=== PATIENT | male | born 1935 | race Caucasian/White ===

== ENCOUNTER 2024-01-20 13:27 | Inpatient (IN) | payer MEDICARE, BC ==
[~2024-01-20] VITALS: Ht 172.7 cm; Wt 70.5 kg
--- NOTE | 2024-01-20 13:36 | ED.PDOC ---
Back pain HPI HPI Comments 88 year old male OMAR presents to the ED with chief complaint of back pain. Patient reports that he has been dealing with chronic back pain for some time now, however, the past 3 days have had the most severe pain. Patient relays that the pain is to the left side of his lower back and is worse with movement, calling 911 due to not being able to take the pain anymore. Patient states his pain is so bad it feels like he is going to fall if he walks on his own. Patient denies any dizziness, headache, saddle numbness, weakness, chest pain, SOB, or fall. Time Seen by MD: 13:33 Reviewed Notes: Nurses Notes, Stacker Driver Notes, Medications, Allergies Allergies: Coded Allergies: NO KNOWN ALLERGIES (Unverified , 01/20/24) Information Source: Patient, Emergency Med Personnel Mode of Arrival: EMS Timing: Days Duration: Since onset Location of Back pain: (L) Lower back Severity: Moderate Prehospital treatment: None Quality: Aching Onset: Spontaneous, Bending, Twisting History of: Chronic Back Pain Modifying Factors: Walking Past Medical History PAST MEDICAL HISTORY: Denies Surgical History: Pacemaker Surgical History (Other): Back surgery Family History Family History: Reviewed,noncontributory to illness Social History Smoker: Non-Smoker Alcohol: Denies ETOH Use Drugs: Denies Drug Use Lives In: Home Constitutional: denies: chills, diaphoresis, fatigue, fever, malaise, sweats, weakness, others EENTM: denies: blurred vision, double vision, ear bleeding, ear discharge, ear drainage, ear pain, ear ringing, eye pain, eye redness, hearing loss, mouth pain, mouth swelling, nasal discharge, nose bleeding, nose congestion, nose pain, photophobia, tearing, throat pain, throat swelling, voice changes, others Respiratory: denies: cough, hemoptysis, orthopnea, SOB at rest, shortness of breath, SOB with excertion, stridor, wheezing, others Cardiovascular: denies: chest pain, dizzy spells, diaphoresis, Dyspnea on exertion, edema, irregular heart beat, left arm pain, lightheadedness, palpitations, PND, syncope, others Gastrointestinal: denies: abdomen distended, abdominal pain, blood streaked bowels, constipated, diarrhea, dysphagia, difficulty swallowing, hematemesis, melena, nausea, poor appetite, poor fluid intake, rectal bleeding, rectal pain, vomiting, others Genitourinary: denies: burning, dysuria, flank pain, frequency, hematuria, incontinence, penile discharge, penile sore, pain, testicle pain, testicle swelling, urgency, others Neurological: denies: dizziness, fainting, headache, left sided numbness, left sided weakness, numbness, paresthesia, pre-existing deficit, right sided numbness, right sided weakness, seizure, speech problems, tingling, tremors, weakness, others Musculoskeletal: reports: back pain; denies: gout, joint pain, joint swelling, muscle pain, muscle stiffness, neck pain, others Integumetry: denies: bruises, change in color, change in hair/nails, dryness, laceration, lesions, lumps, rash, wounds, others Allergic/Immunocompromised: denies: Difficulty Healing, Frequent Infections, Hives, Itching, others Hematologic/Lymphatic: denies: anemia, blood clots, easy bleeding, easy bruising, swollen glands, others Endocrine: denies: excessive hunger, excessive sweating, excessive thirst, excessive urination, flushing, intolerance to cold, intolerance to heat, unexplained weight gain, unexplained weight loss, others Psychiatric: denies: anxiety, bipolar disorder, depression, hopeless, panic disorder, schizophrenia, sleepless, suicidal, others All Other Systems: Reviewed and Negative Physical Exam General Appearance: Moderate Distress, Normal HEENT: Normal ENT Inspection, PERRL/EOMI Neck: Full Range of Motion, Non-Tender, Normal, Normal Inspection Respiratory: Chest Non-Tender, Lungs Clear, No Accessory Muscle Use, No Respiratory Distress, Normal Breath Sounds Cardiovascular: No Edema, No JVD, No Murmur, No Gallop, Normal Peripheral Pulses, Regular Rate/Rhythm Breast Exam: Deferred Gastrointestinal: No Organomegaly, Non Tender, No Pulsatile Mass, Normal Bowel Sounds, Soft Genitalia: Deferred Pelvic: Deferred Rectal: Deferred Extremities: No calf tenderness, Normal capillary refill, Normal inspection, Normal range of motion, Non-tender, No pedal edema Musculoskeletal : Apperance: Normal Neurologic: Alert, No Motor Deficits, No Sensory Deficits Cerebellar Function: NOT DONE Reflexes: NOT DONE Skin: Dry, Normal Color, Warm Peripheral Pulses: 3+ Radial (R), 3+ Radial (L) Lymphatic: No Adenopathy Was a procedure done? Was a procedure done?: No Back Pain Differential Dx Differential Diagnosis: Musculoskeletal Pain, Urinary Tract Infection, Urolithiasis X-Ray, Labs, Meds, VS Vital Signs Date Time Temp Pulse Resp B/P (MAP) Pulse Ox O2 Delivery O2 Flow Rate FiO2 01/20/24 13:48 98.2 70 16 145/103 (117) 98 Lab Test 01/20/24 14:09 01/20/24 13:54 Range/Units White Blood Count 8.7 4.4-10.8 10^3/uL Red Blood Count 4.76 4.5-5.90 10^6/uL Hemoglobin 14.1 13.5-17.5 g/dL Hematocrit 41.0 41.0-53.0 % Mean Corpuscular Volume 86.2 80.0-100.0 fL Mean Corpuscular Hemoglobin 29.6 28.0-32.0 pg Mean Corpuscular Hemoglobin Concent 34.3 32.0-36.0 g/dL Red Cell Distribution Width 14.7 H 11.8-14.3 % Platelet Count 261 140-450 10^3/uL Mean Platelet Volume 8.6 6.9-10.8 fL Neutrophils (%) (Auto) 62.9 37.0-80.0 % Lymphocytes (%) (Auto) 27.4 10.0-50.0 % Monocytes (%) (Auto) 8.5 0.0-12.0 % Eosinophils (%) (Auto) 0.6 0.0-7.0 % Basophils (%) (Auto) 0.6 0.0-2.0 % Neutrophils # (Auto) 5.5 1.6-8.6 10 ^3/uL Lymphocytes # (Auto) 2.4 0.4-5.4 10 ^3/uL Monocytes # (Auto) 0.7 0-1.3 10 ^3/uL Eosinophils # (Auto) 0 0-0.8 10 ^3/uL Basophils # (Auto) 0.1 0-0.2 10 ^3/uL Nucleated Red Blood Cells 0.1 % Sodium Level 141 136-145 mmol/L Potassium Level 4.2 3.5-5.1 mmol/L Chloride Level 106 98-107 mmol/L Carbon Dioxide Level 27 20-31 mmol/L Anion Gap 8 5-15 Blood Urea Nitrogen 29 H 9-23 mg/dL Creatinine 1.12 0.700-1.30 mg/dL Glomerular Filtration Rate Calc 63 >90 mL/min BUN/Creatinine Ratio 25.9 H 10.0-20.0 Serum Glucose 110 H 74-106 mg/dL Calcium Level 9.8 8.7-10.4 mg/dL Troponin I High Sensitivity 4 </=54 ng/L Urine Color Yellow Yellow Urine Clarity Clear Clear Urine pH 6.0 5.0-9.0 Urine Specific [place] 1.028 1.001-1.035 Urine Protein Negative Negative Urine Ketones Negative Negative Urine Blood Negative Negative /uL Urine Nitrite Negative Negative Urine Bilirubin Negative Negative Urine Urobilinogen Normal Negative mg/dL Urine Leukocyte Esterase Negative Negative /uL Urine RBC 2 0 - 3 /hpf Urine WBC None seen 0 - 3 /hpf Urine Squamous Epithelial Cells Few <5 /hpf Urine Bacteria None seen None Seen /hpf Urine Glucose Normal Normal mg/dL Patient alert. Complaining of back pain. Denies fall. Vitals stable. He can not move without having excruciating pain. Was given pain medication. Urinalysis within normal limits. Possible kidney stone. WBC within normal limits. Blood pressure slightly elevated. Physiotherapy. Reviewed his history. Explained to the patient. Continue cardiac monitoring. Time of 1ST Reevaluation: 14:33 Reevaluation 1ST: Unchanged Patient Education/Counseling: Diagnosis, Treatment Family Education/Counseling: No Family Present Departure 1 Departure Time of Disposition: 15:56 Impression: Primary Impression: HTN (hypertension) Qualified Codes: I10 - Essential (primary) hypertension Additional Impression: Lumbar sprain Qualified Codes: S33.5XXA - Sprain of ligaments of lumbar spine, initial encounter Disposition: ADMITTED INPATIENT Admit to: Med Surg Condition: Guarded Critical Care Note Critical Care Time?: Yes (45 min-critical care time only) Stability Stability form required: No Heart Score Heart Score: Heart Score Response (Comments) Value History Slightly Suspicious 0 EKG Normal 0 Age 45-64 1 Risk Factors 1 or 2 risk factors 1 Troponin Normal limit 0 Total 2 I personally scribed for LALO CADENA MD ([email or web address]) on 01/20/24 at 13:36. Electronically submitted by Asher Haley ([email or web address]). LALO CADENA MD Jan 20, 2024 13:36
[2024-01-20 13:58] LABS: Urine Bacteria None Seen /hpf (None Seen); Urine WBC None Seen /hpf (0 - 3)
[2024-01-20 14:03] LABS: Urine Blood Negative /uL (Negative); Urine Clarity Clear (Clear); Urine Color Yellow (Yellow); Urine Protein, UAD Negative (Negative); Urine Specific Gravity 1.028 (1.001-1.035); Urine Urobilinogen Normal (Negative)
[2024-01-20 14:35] LABS: Basophils # (auto) 0.1 10 ^3/uL (0-0.2); Basophils % (auto) 0.6 % (0.0-2.0); Eosinophils # (auto) 0 10 ^3/uL (0-0.8); Eosinophils % (auto) 0.6 % (0.0-7.0); Hemoglobin 14.1 g/dL (13.5-17.5); Lymphocytes # (auto) 2.4 10 ^3/uL (0.4-5.4); Lymphocytes % (auto) 27.4 % (10.0-50.0); Mean Corpuscular Hemoglobin 29.6 pg (28.0-32.0); Mean Corpuscular Hgb Conc. 34.3 g/dL (32.0-36.0); Mean Corpuscular Volume 86.2 fL (80.0-100.0); Monocytes # (auto) 0.7 10 ^3/uL (0-1.3); Monocytes % (auto) 8.5 % (0.0-12.0); Neutrophils # (auto) 5.5 10 ^3/uL (1.6-8.6); Neutrophils % (auto) 62.9 % (37.0-80.0); Nucleated Red Blood Cells % 0.1 %; Platelet Count (auto) 261 10^3/uL (140-450); Red Blood Cells 4.76 10^6/uL (4.5-5.90); Red Cell Distribution Width 14.7 % (11.8-14.3); White Blood Cell 8.7 10^3/uL (4.4-10.8)
[2024-01-20 14:51] LABS: Chloride 106 mmol/L (98-107); Potassium 4.2 mmol/L (3.5-5.1); Sodium 141 mmol/L (136-145)
[2024-01-20 14:52] LABS: Anion Gap 8 (5-15); Calcium 9.8 mg/dL (8.7-10.4); Carbon Dioxide 27 mmol/L (20-31)
[2024-01-20 14:57] LABS: BUN/Creatinine Ratio 25.9 (10.0-20.0); Blood Urea Nitrogen 29 mg/dL (9-23); Glucose 110 mg/dL (74-106)
[2024-01-20] MEDS: HYDROcodone-ACET 5/325MG TAB PO ONE (16:51)
[2024-01-20 16:52] VITALS: PULSE 60; RESP 16; O2SAT 95
[2024-01-20] MEDS ORDERED: ONDANSETRON HCL 4 MG/2 ML VIAL IV PRN (18:45)
[2024-01-20] MEDS ORDERED: ACETAMINOPHEN 325 MG TAB PO PRN (18:45)
[2024-01-20] MEDS ORDERED: MORPHINE SULFATE INJ 2 MG/ml SYRG IV PRN (18:45)
[2024-01-20] MEDS ORDERED: DOCUSATE SOD 100 MG CAP PO PRN (18:45)
--- NOTE | 2024-01-20 18:58 | DVHHP2 ---
History of Present Illness Reason for Visit: Back Pain History of Present Illness 88 yo with severe back pain stated to be so severe that its interrupting with daily living making it very difficult for the patient to function at home brought in with stating being home is becoming unsafe and requesting evaluation for physical therapy or possibly a need for rehab placement Cardiovascular: HTN Review of Systems Constitutional: No: Fever, Chills, Sweats, Weakness, Malaise, Other Eyes: No: Pain, Vision change, Conjunctivae inflammation, Eyelid inflammation, Other, Redness ENT: No: Ear pain, Ear discharge, Nose pain, Nose discharge, Nose congestion, Mouth pain, Mouth swelling, Throat pain, Throat swelling, Other Respiratory: No: Cough, Dry, Shortness of breath, SOB with excertion, Wheezing, Hemoptysis, Pleuritic Pain, Sputum, Wheezing, Other Cardiovascular: No: Chest Pain, Palpitations, Orthopnea, Paroxysmal Noc. Dyspnea, Edema, Lt Headedness, Other Gastrointestinal: No: Nausea, Vomiting, Abdominal Pain, Diarrhea, Constipation, Melena, Hematochezia, Other Genitourinary: No Dysuria, No Frequency, No Incontinence, No Hematuria, No Retention, No Other Musculoskeletal: back pain; No: other, neck pain, shoulder pain, arm pain, hand pain, leg pain, foot pain Skin: No: Rash, Lesions, Jaundice, Bruising, Other Neurological: No: Weakness, Numbness, Incoordination, Change in speech, Confusion, Seizures, Other Allergies: Coded Allergies: NO KNOWN ALLERGIES (Unverified , 01/20/24) Exam Vital Signs Vital Signs Date Time Temp Pulse Resp B/P (MAP) Pulse Ox O2 Delivery O2 Flow Rate FiO2 01/20/24 16:52 60 16 95 Room Air* 0 21 01/20/24 16:49 97.5 146/94 (111) 97.5 General Appearance: Alert, Oriented X3 HEENT: Atraumatic, PERRLA Respiratory: Clear to auscultation, Normal air movement Cardiovascular: Regular rate, Normal S1, Normal S2 Abdominal: Normal bowel sounds, Soft Extremities: No clubbing, No cyanosis Skin: No rashes, No breakdown Neuro: Normal gait, Normal speech Psych/Mental Status: Mental status NL, Mood NL Labs/Xrays Labs Test 01/20/24 14:09 01/20/24 13:54 Range/Units White Blood Count 8.7 4.4-10.8 10^3/uL Red Blood Count 4.76 4.5-5.90 10^6/uL Hemoglobin 14.1 13.5-17.5 g/dL Hematocrit 41.0 41.0-53.0 % Mean Corpuscular Volume 86.2 80.0-100.0 fL Mean Corpuscular Hemoglobin 29.6 28.0-32.0 pg Mean Corpuscular Hemoglobin Concent 34.3 32.0-36.0 g/dL Red Cell Distribution Width 14.7 H 11.8-14.3 % Platelet Count 261 140-450 10^3/uL Mean Platelet Volume 8.6 6.9-10.8 fL Neutrophils (%) (Auto) 62.9 37.0-80.0 % Lymphocytes (%) (Auto) 27.4 10.0-50.0 % Monocytes (%) (Auto) 8.5 0.0-12.0 % Eosinophils (%) (Auto) 0.6 0.0-7.0 % Basophils (%) (Auto) 0.6 0.0-2.0 % Neutrophils # (Auto) 5.5 1.6-8.6 10 ^3/uL Lymphocytes # (Auto) 2.4 0.4-5.4 10 ^3/uL Monocytes # (Auto) 0.7 0-1.3 10 ^3/uL Eosinophils # (Auto) 0 0-0.8 10 ^3/uL Basophils # (Auto) 0.1 0-0.2 10 ^3/uL Nucleated Red Blood Cells 0.1 % Sodium Level 141 136-145 mmol/L Potassium Level 4.2 3.5-5.1 mmol/L Chloride Level 106 98-107 mmol/L Carbon Dioxide Level 27 20-31 mmol/L Anion Gap 8 5-15 Blood Urea Nitrogen 29 H 9-23 mg/dL Creatinine 1.12 0.700-1.30 mg/dL Glomerular Filtration Rate Calc 63 >90 mL/min BUN/Creatinine Ratio 25.9 H 10.0-20.0 Serum Glucose 110 H 74-106 mg/dL Calcium Level 9.8 8.7-10.4 mg/dL Troponin I High Sensitivity 4 </=54 ng/L Urine Color Yellow Yellow Urine Clarity Clear Clear Urine pH 6.0 5.0-9.0 Urine Specific [place] 1.028 1.001-1.035 Urine Protein Negative Negative Urine Ketones Negative Negative Urine Blood Negative Negative /uL Urine Nitrite Negative Negative Urine Bilirubin Negative Negative Urine Urobilinogen Normal Negative mg/dL Urine Leukocyte Esterase Negative Negative /uL Urine RBC 2 0 - 3 /hpf Urine WBC None seen 0 - 3 /hpf Urine Squamous Epithelial Cells Few <5 /hpf Urine Bacteria None seen None Seen /hpf Urine Glucose Normal Normal mg/dL Assessment/Plan Assessment/Plan Admit Med/Surge Lumbar Pain Effected ADLS Patient requested PT services PT ordered in the ED May require rehab or out patient PT CT lumbar ordered for full evaluation prn pain medication Plan discussed with: Patient My Orders Orders - KEYUR OCASIO MD Procedure Category Date Status Time Lumbar Spine Wo MRI 01/20/24 Logged Contrast 18:40 Admit ADMIT 01/20/24 Transmitted 18:42 Code Status CODE 01/20/24 Transmitted 18:42 Vital Signs [facility] 01/20/24 In Process 18:42 Review Orders With [facility] 01/20/24 In Process Adm. 18:42 Regular Diet DIET 01/21/24 Transmitted Breakfast Docusate Sodium [facility] 01/20/24 Logged Capsule (Colace 18:45 Acetaminophen Tablet PHA 01/20/24 Logged (Tylenol Tablet) 18:45 Notify Of Changes [facility] 01/20/24 In Process From Base 18:42 Advance Directive [facility] 01/20/24 In Process 18:42 Basic Metabolic Panel LAB 01/21/24 Verified 04:00 Complete Blood Count LAB 01/21/24 Verified 04:00 Patient Condition ORDERS 01/20/24 Transmitted 18:42 Allergies [facility] 01/20/24 In Process 18:42 Hydrocodone-Acet PHA 01/20/24 Logged 5/325mg Tab ([place] 18:45 Ondansetron Hcl PHA 01/20/24 Logged (Zofran) 18:45 Morphine Sulfate PHA 01/20/24 Logged Injection 18:45 Notify Of Changes [facility] 01/20/24 In Process From Base 18:42 Ls Spine Wo Contrast CT 01/20/24 Verified 18:49 Problem List: (1) Lumbar vertebral fracture (2) Lumbar sprain (3) HTN (hypertension) Date of Service: Jan 20, 2024 Billing Provider: KEYUR OCASIO MD Common Visit Codes: [id number] INP/OBS CARE (HIGH) KEYUR OCASIO MD Jan 20, 2024 18:58
--- NOTE | 2024-01-20 20:20 | DVH ---
CT LS SPINE WO CONTRAST Date: 01/20/2024 07:39 PM History: r/o fracture herniation Comparison: None TECHNIQUE: Multiple axial CT images of the lumbosacral spine were obtained using bone algorithm. Axial and coron al reformatting was done. Bone and soft tissue windows were reviewed. Radiation Dose Information: CT Dose: CTDI volume is 15.11 mGy. Dose-length product is 549.53 mGy*cm FINDINGS: No CT evidence of definite acute fracture, spinal dislocation, or significant appearing acute subluxa tion is seen. The visualized paraspinal soft tissues are grossly unremarkable. T12-L1 There is no evidence of central spinal canal or neuroforaminal stenosis. L1-L2 There is no evidence of central spinal canal or neuroforaminal stenosis. Degenerative disc lainez ges at L1-2 L2-L3 There is no evidence of central spinal canal or neuroforaminal stenosis. Degenerative disc lainez ges at L2-3. L3-L4 There is no evidence of central spinal canal or neuroforaminal stenosis. Bilateral laminectomy at L4. Degenerative disc changes at L3-4. Hypertrophic arthritic bony changes of the posterior facets and ligamentum flavum. L4-L5 There is no evidence of central spinal canal or neuroforaminal stenosis. Bilateral laminectomy at L4-5. 10 mm anterior spondylolisthesis L4-5. Degenerative disc changes at 4 5 L5-S1 There is no evidence of central spinal canal or neuroforaminal stenosis. Bilateral laminectomy at L5-S1 IMPRESSION: 1. No definite CT evidence of acute fracture or dislocation of the bony lumbar spine. 2. Degenerative disc changes from L1 through L5. 3. Bilateral laminectomy at L4-L5 and S1. 4. 10 mm anterior spondylolisthesis at L4-5. All CT scans at this medical facility are performed using dose modulation techniques as appropriate t o a performed exam including the following: Automated exposure control was utilized; adjustment of th e MA and/or KV according to patient size; and use of iterative reconstruction technique.
[2024-01-20 23:06] VITALS: BP 121/87; PULSE 59; RESP 16; TEMP 97.8; O2SAT 94
[2024-01-20 23:14] VITALS: BP 121/87; PULSE 59; RESP 16; TEMP 97.8; O2SAT 94
[2024-01-21] VITALS (9 sets, daily range): BP systolic 142–169; BP diastolic 68–86; PULSE 45–79; RESP 16–20; TEMP 97.6–98.6; O2SAT 92–95
[2024-01-21] MEDS: HYDROcodone-ACET 5/325MG TAB PO PRN (05:50)
[2024-01-21 09:10] LABS: Basophils # (auto) 0 10 ^3/uL (0-0.2); Basophils % (auto) 0.7 % (0.0-2.0); Eosinophils # (auto) 0.1 10 ^3/uL (0-0.8); Eosinophils % (auto) 0.8 % (0.0-7.0); Hematocrit 44.2 % (41.0-53.0); Lymphocytes # (auto) 2.6 10 ^3/uL (0.4-5.4); Mean Corpuscular Hemoglobin 29.1 pg (28.0-32.0); Mean Corpuscular Hgb Conc. 33.9 g/dL (32.0-36.0); Mean Corpuscular Volume 85.9 fL (80.0-100.0); Monocytes # (auto) 0.7 10 ^3/uL (0-1.3); Monocytes % (auto) 10.5 % (0.0-12.0); Neutrophils # (auto) 3.2 10 ^3/uL (1.6-8.6); Nucleated Red Blood Cells % 0.1 %; Platelet Count (auto) 268 10^3/uL (140-450); Red Blood Cells 5.14 10^6/uL (4.5-5.90); Red Cell Distribution Width 14.6 % (11.8-14.3); White Blood Cell 6.6 10^3/uL (4.4-10.8)
[2024-01-21 09:23] LABS: Chloride 105 mmol/L (98-107); Potassium 3.8 mmol/L (3.5-5.1); Sodium 139 mmol/L (136-145)
[2024-01-21 09:24] LABS: Anion Gap 8 (5-15); Carbon Dioxide 26 mmol/L (20-31)
[2024-01-21 09:29] LABS: BUN/Creatinine Ratio 14.4 (10.0-20.0); Blood Urea Nitrogen 16 mg/dL (9-23); Glucose 128 mg/dL (74-106)
[2024-01-21] MEDS ORDERED: APIX5TAB PO (10:06)
[2024-01-21] MEDS ORDERED: NEBI5TAB10 PO (10:10)
[2024-01-21] MEDS ORDERED: [UNRECOGNIZED DRUG - CODE] PO (10:19)
--- NOTE | 2024-01-21 11:59 | DVHPN2 ---
Reviewed: Care Plan, H&P, Labs, Medications, Previous Orders, Radiology Changes from previous H/P or p: No Changes Eyes: No Pain, No Vision change, No Conjunctivae inflammation, No Eyelid inflammation, No Other, No Redness ENT: No Ear pain, No Ear discharge, No Nose pain, No Nose discharge, No Nose congestion, No Mouth pain, No Mouth swelling, No Throat pain, No Throat swelling, No Other Cardiovascular: No Chest Pain, No Palpitations, No Orthopnea, No Paroxysmal Noc. Dyspnea, No Edema, No Lt Headedness, No Other Respiratory: No Cough, No Dry, No Shortness of breath, No SOB with excertion, No Wheezing, No Hemoptysis, No Pleuritic Pain, No Sputum, No Other Gastrointestinal: No Nausea, No Vomiting, No Abdominal Pain, No Diarrhea, No Constipation, No Melena, No Hematochezia, No Other Genitourinary: No Dysuria, No Frequency, No Incontinence, No Hematuria, No Retention, No Other Musculoskeletal: No other, No neck pain, No shoulder pain, No arm pain; back pain; No hand pain, No leg pain, No foot pain Skin: No Rash, No Lesions, No Jaundice, No Bruising, No Other Objective Vitals Vital Signs Date Time Temp Pulse Resp B/P (MAP) Pulse Ox O2 Delivery O2 Flow Rate FiO2 01/21/24 09:00 98.3 61 20 153/75 (101) 95 98.3 01/21/24 08:00 Room Air* 0 21 Intake/Output Intake and Output 01/21/24 07:00 Intake Total 240 ml Output Total 400 ml Balance -160 ml Intake Oral 240 ml Output Urine Total 400 ml # Voids 1 # Bowel Movements 1 Medications Current Medications Medications Dose Ordered Sig/Irma Route Start Time Stop Time Status Last Admin Dose Admin Docusate Sodium 100 mg BIDPRN PRN PO 01/20/24 18:45 Acetaminophen 650 mg Q6HP PRN PO 01/20/24 18:45 Acetaminophen/ Hydrocodone Bitart 1 tab Q4HP PRN PO 01/20/24 18:45 01/21/24 10:15 1 TAB Ondansetron HCl 4 mg Q4HP PRN IV 01/20/24 18:45 Morphine Sulfate 2 mg Q4HPRN PRN IV 01/20/24 18:45 Laboratory Results Laboratory Tests 01/21/24 08:57 Chemistry Test 01/20/24 14:09 01/21/24 08:57 Calcium Level 9.8 mg/dL (8.7-10.4) 10.0 mg/dL (8.7-10.4) Urinalysis Test 01/20/24 13:54 Urine Color Yellow (Yellow) Urine Clarity Clear (Clear) Urine pH 6.0 (5.0-9.0) Urine Specific [place] 1.028 (1.001-1.035) Urine Protein Negative (Negative) Urine Ketones Negative (Negative) Urine Blood Negative /uL (Negative) Urine Nitrite Negative (Negative) Urine Bilirubin Negative (Negative) Urine Urobilinogen Normal mg/dL (Negative) Urine Leukocyte Esterase Negative /uL (Negative) Urine RBC 2 /hpf (0 - 3) Urine WBC None seen /hpf (0 - 3) Urine Squamous Epithelial Cells Few /hpf (<5) Urine Bacteria None seen /hpf (None Seen) Urine Glucose Normal mg/dL (Normal) Labs and/or images reviewed: Labs reviewed by me, Image(s) reviewed by me Assessment/Plan Assessment/Plan Severe low back pain with DJD L1-L5 and spondylolisthesis L4 and L5, we will order MRI L-spine, spine surgery consult for placed Hypertension: Bystolic 5 mg p.o. daily History of pacemaker History of Bilateral laminectomy L4 and L5 six years ago Patient is on Eliquis ? etiology , we will hold for now as patient may need surgery Patient's son Sang Rogers [phone] and Niece Candis [phone] at bedside Spent 50 minutes Advanced care planning time discussing the diagnosis and management with the family [facility] PCP Dr Valenzuela Plan discussed with: Patient My Orders Orders - ADA MARIA MD Procedure Category Date Status Time * Orthopedic Consult CONS 01/21/24 Transmitted 11:47 Lumbar Spine Wo MRI 01/21/24 Logged Contrast 11:47 (Nf) Bystolic PHA 01/22/24 Verified 10:00 Date of Service: Jan 21, 2024 Billing Provider: ADA MARIA MD Common Visit Codes: [id number] INP/OBS CARE(HIGH) Secondary Visit Codes: [id number] CARE PLAN 30 MINUTES ADA AMRIA MD Jan 21, 2024 11:59
[2024-01-21] MEDS: hydrALAZINE HCL 20 MG/ML VL IV PRN (18:28)
[2024-01-22 01:14] VITALS: BP 155/66; PULSE 53; RESP 17; TEMP 97.7; O2SAT 92
[2024-01-22 05:19] VITALS: BP 121/71; PULSE 62; RESP 18; TEMP 98.6; O2SAT 98
[2024-01-22 09:00] VITALS: BP 120/52; PULSE 52; RESP 18; TEMP 98; O2SAT 93
--- NOTE | 2024-01-22 10:29 | DVHPN2 ---
Reviewed: Care Plan, H&P, Labs, Medications, Previous Orders, Radiology Changes from previous H/P or p: No Changes Eyes: No Pain, No Vision change, No Conjunctivae inflammation, No Eyelid inflammation, No Other, No Redness ENT: No Ear pain, No Ear discharge, No Nose pain, No Nose discharge, No Nose congestion, No Mouth pain, No Mouth swelling, No Throat pain, No Throat swelling, No Other Cardiovascular: No Chest Pain, No Palpitations, No Orthopnea, No Paroxysmal Noc. Dyspnea, No Edema, No Lt Headedness, No Other Respiratory: No Cough, No Dry, No Shortness of breath, No SOB with excertion, No Wheezing, No Hemoptysis, No Pleuritic Pain, No Sputum, No Other Gastrointestinal: No Nausea, No Vomiting, No Abdominal Pain, No Diarrhea, No Constipation, No Melena, No Hematochezia, No Other Genitourinary: No Dysuria, No Frequency, No Incontinence, No Hematuria, No Retention, No Other Musculoskeletal: No other, No neck pain, No shoulder pain, No arm pain; back pain; No hand pain, No leg pain, No foot pain Skin: No Rash, No Lesions, No Jaundice, No Bruising, No Other Objective Vitals Vital Signs Date Time Temp Pulse Resp B/P (MAP) Pulse Ox O2 Delivery O2 Flow Rate FiO2 01/22/24 09:00 98.0 52 18 120/52 (74) 93 98.0 01/21/24 20:00 Nasal Cannula* 3 32 Intake/Output Intake and Output 01/22/24 07:00 Intake Total 1000 ml Output Total 1050 ml Balance -50 ml Intake Oral 1000 ml Output Urine Total 1050 ml Medications Current Medications Medications Dose Ordered Sig/Irma Route Start Time Stop Time Status Last Admin Dose Admin Docusate Sodium 100 mg BIDPRN PRN PO 01/20/24 18:45 Acetaminophen 650 mg Q6HP PRN PO 01/20/24 18:45 Acetaminophen/ Hydrocodone Bitart 1 tab Q4HP PRN PO 01/20/24 18:45 01/21/24 10:15 1 TAB Ondansetron HCl 4 mg Q4HP PRN IV 01/20/24 18:45 Morphine Sulfate 2 mg Q4HPRN PRN IV 01/20/24 18:45 Hydralazine HCl 10 mg Q6HP PRN IV 01/21/24 18:00 01/22/24 00:30 10 MG Patient Own Medication 5 mg DAILY PO 01/22/24 10:00 Laboratory Results Laboratory Tests 01/21/24 08:57 Urinalysis Test 01/20/24 13:54 Urine Color Yellow (Yellow) Urine Clarity Clear (Clear) Urine pH 6.0 (5.0-9.0) Urine Specific [place] 1.028 (1.001-1.035) Urine Protein Negative (Negative) Urine Ketones Negative (Negative) Urine Blood Negative /uL (Negative) Urine Nitrite Negative (Negative) Urine Bilirubin Negative (Negative) Urine Urobilinogen Normal mg/dL (Negative) Urine Leukocyte Esterase Negative /uL (Negative) Urine RBC 2 /hpf (0 - 3) Urine WBC None seen /hpf (0 - 3) Urine Squamous Epithelial Cells Few /hpf (<5) Urine Bacteria None seen /hpf (None Seen) Urine Glucose Normal mg/dL (Normal) Labs and/or images reviewed: Labs reviewed by me, Image(s) reviewed by me Assessment/Plan Assessment/Plan Severe low back pain with DJD L1-L5 and spondylolisthesis L4 and L5, we will order MRI L-spine, spine surgery consult for placed Hypertension: Bystolic 5 mg p.o. daily History of pacemaker History of Bilateral laminectomy L4 and L5 six years ago Patient is on Eliquis ? etiology , we will hold for now as patient may need surgery Patient's son Sang Rogers [phone] and Nicalin Chirinos [phone] at bedside Time spent [address] Nicolas KRAUS tech requesting cardiac clearance for MRI, patient has [employer] pacemaker, copy in the chart Plan discussed with: Patient My Orders Orders - ADA MARIA MD Procedure Category Date Status Time * Orthopedic Consult CONS 01/21/24 Transmitted 11:47 Lumbar Spine Wo MRI 01/21/24 Logged Contrast 11:47 (Nf) Bystolic PHA 01/22/24 In Process 10:00 Date of Service: Jan 22, 2024 Billing Provider: ADA MARIA MD Common Visit Codes: [id number] INP/OBS CARE(HIGH) ADA MARIA MD Jan 22, 2024 10:29
[2024-01-22 13:00] VITALS: BP 151/66; PULSE 64; RESP 18; TEMP 97.8; O2SAT 94
--- NOTE | 2024-01-22 14:13 | DVHINCON2 ---
Date Seen: Jan 22, 2024 Referring Physician Maximo Reason for Consultation Cardiac Clearance for MRI, Presence of PPM History of Present Illness 88-year-old male with PMH for HTN, prostate cancer s/p treatment currently in remission, paroxysmal atrial fibrillation on Eliquis, sick sinus syndrome s/p ppm dual-chamber Medtronic device 07/28/2020 presented to the hospital with severe back pain. Upon evaluation in the ER patient noted to have negative troponin. CT scan showing Degenerative disc changes from L1 through L5 with bilateral laminectomy at L4-L5. Cardiology being consulted for cardiac clearance for MRI in presence of ppm Past Medical History As stated above Past Surgical History As stated above Family History: Patient reports no known family medical history. Family History Denies pertinent family cardiac history Social History Denies alcohol, tobacco, or illicit drug use. Allergies: Coded Allergies: NO KNOWN ALLERGIES (Unverified , 01/20/24) Home Meds Reported Medications Nebivolol HCl (Nebivolol Hydrochloride) 2.5 Mg Tab, 1 TAB PO DAILY 01/21/24 Apixaban Base (ELIQUIS) 5 Mg Tab, 5 MG PO BID, TAB 01/21/24 Discontinued Reported Medications Nebivolol Hcl (Bystolic) 5 Mg Tab, 1 TAB PO DAILY, #30 TAB 5 Refills 01/21/24 Current Medications Current Medications Medications (Trade) Dose Ordered Sig/Irma Route PRN Reason Start Time Stop Time Status Last Admin Patient Own Medication 5 mg DAILY PO 01/22/24 10:00 01/22/24 08:13 DC 01/22/24 00:30 Hydralazine HCl (Apresoline Injection) 10 mg Q6HP PRN IV SBP>160 01/21/24 18:00 01/22/24 00:30 Patient Own Medication 5 mg DAILY PO 01/22/24 10:00 Review of Systems Constitutional: No: Fever, Chills, Sweats, Weakness, Malaise, Other Eyes: No: Pain, Vision change, Conjunctivae inflammation, Eyelid inflammation, Other, Redness ENT: No: Ear pain, Ear discharge, Nose pain, Nose discharge, Nose congestion, Mouth pain, Mouth swelling, Throat pain, Throat swelling, Other Respiratory: No: Cough, Dry, Shortness of breath, SOB with exertion, Wheezing, Hemoptysis, Pleuritic Pain, Sputum, Wheezing, Other Cardiovascular: ; No: Chest Pain Palpitations, Orthopnea, Paroxysmal Noc. Dyspnea, Edema, Lt Headedness, Other Gastrointestinal: No: Nausea, Vomiting, Abdominal Pain, Diarrhea, Constipation, Melena, Hematochezia, Other Genitourinary: No Dysuria, No Frequency, No Incontinence, No Hematuria, No Retention, No Other Musculoskeletal: neck pain; No: other, shoulder pain, arm pain,, hand pain, leg pain, foot pain positive: Lower back pain Skin: No: Rash, Lesions, Jaundice, Bruising, Other Neurological: Other (Dizziness, headache.); No: Weakness, Numbness, Incoordination, Change in speech, Confusion, Seizures Vital Signs Vital Signs Date Time Temp Pulse Resp B/P (MAP) Pulse Ox O2 Delivery O2 Flow Rate FiO2 01/22/24 09:00 98.0 52 18 120/52 (74) 93 98.0 01/21/24 20:00 Nasal Cannula* 3 32 Physical Exam General appearance: Patient is well-developed, well-nourished, in no acute distress. HEENT: Exam shows: Normocephalic, atraumatic, PERRLA, EOMI Neck: Supple, no bruits Chest: Equal chest excursion bilaterally. Breath sounds normal-no rales or wheezes. Heart: Rhythm: Irregular rate/regular/ a paced; no murmur or gallop Abdomen: Exam shows: Soft, nontender, nondistended Musculoskeletal: No clubbing, no cyanosis, no lower extremity edema Dermatology: Skin warm, moist. Neurological: Exam shows: Alert and oriented x4, normal speech Available prior records, labs, EKG, rhythm strips reviewed and interpreted Labs/Diagnostic Data Labs Test 01/21/24 08:57 01/20/24 14:09 01/20/24 13:54 Range/Units White Blood Count 6.6 4.4-10.8 10^3/uL Red Blood Count 5.14 4.5-5.90 10^6/uL Hemoglobin 15.0 13.5-17.5 g/dL Hematocrit 44.2 41.0-53.0 % Mean Corpuscular Volume 85.9 80.0-100.0 fL Mean Corpuscular Hemoglobin 29.1 28.0-32.0 pg Mean Corpuscular Hemoglobin Concent 33.9 32.0-36.0 g/dL Red Cell Distribution Width 14.6 H 11.8-14.3 % Platelet Count 268 140-450 10^3/uL Mean Platelet Volume 8.5 6.9-10.8 fL Neutrophils (%) (Auto) 49.0 37.0-80.0 % Lymphocytes (%) (Auto) 39.0 10.0-50.0 % Monocytes (%) (Auto) 10.5 0.0-12.0 % Eosinophils (%) (Auto) 0.8 0.0-7.0 % Basophils (%) (Auto) 0.7 0.0-2.0 % Neutrophils # (Auto) 3.2 1.6-8.6 10 ^3/uL Lymphocytes # (Auto) 2.6 0.4-5.4 10 ^3/uL Monocytes # (Auto) 0.7 0-1.3 10 ^3/uL Eosinophils # (Auto) 0.1 0-0.8 10 ^3/uL Basophils # (Auto) 0 0-0.2 10 ^3/uL Nucleated Red Blood Cells 0.1 % Sodium Level 139 136-145 mmol/L Potassium Level 3.8 3.5-5.1 mmol/L Chloride Level 105 98-107 mmol/L Carbon Dioxide Level 26 20-31 mmol/L Anion Gap 8 5-15 Blood Urea Nitrogen 16 # 9-23 mg/dL Creatinine 1.11 0.700-1.30 mg/dL Glomerular Filtration Rate Calc 63 >90 mL/min BUN/Creatinine Ratio 14.4 10.0-20.0 Serum Glucose 128 H 74-106 mg/dL Calcium Level 10.0 8.7-10.4 mg/dL Troponin I High Sensitivity 4 </=54 ng/L Urine Color Yellow Yellow Urine Clarity Clear Clear Urine pH 6.0 5.0-9.0 Urine Specific [place] 1.028 1.001-1.035 Urine Protein Negative Negative Urine Ketones Negative Negative Urine Blood Negative Negative /uL Urine Nitrite Negative Negative Urine Bilirubin Negative Negative Urine Urobilinogen Normal Negative mg/dL Urine Leukocyte Esterase Negative Negative /uL Urine RBC 2 0 - 3 /hpf Urine WBC None seen 0 - 3 /hpf Urine Squamous Epithelial Cells Few <5 /hpf Urine Bacteria None seen None Seen /hpf Urine Glucose Normal Normal mg/dL Assessment * Paroxysmal atrial fibrillation - continue on Bystolic. Currently sinus rhythm. Recommend Lovenox full-dose interim while off Eliquis for stroke prophylaxis if not contraindicated. * Presence of dual-chamber Medtronic ppm - interrogation done. MRI compatible. Normal functioning device, normal lead impedance and capture threshold. May proceed with MRI. * HTN - management per primary team. * Severe low back pain with DJD L1-L5 and spondylolisthesis L4 on L5 - MRI pending. Spine surgery consult. Case Discussed with Dr Dennis. Dual-chamber Medtronic ppm device interrogated. Normal functioning. MRI compatible. Patient does have history of intermittent atrial fibrillation with episodes of RVR on interrogation. Currently sinus rhythm. Continue telemetry monitoring. Recommend anticoagulation therapy with Lovenox interim pending workup for possible surgery. Restart Eliquis upon discharge once cleared if no contraindication. There is no further cardiac work-up indicated at this time. Thank you for allowing us to participate in this patient's care. Will sign off. Critical care, time spent: 35 minutes This medical document was created using an electronic medical record system with voice recognition software and computerized dictation system. Although this document has been carefully reviewed, there might still be some phonetic and typographical errors. Occasional wrong-word or ``sound-alike substitutions may have occurred due to the inherent limitations of voice recognition software. These areas are purely typographical due to imperfections of the software prog chao and do not reflect any compromise in the patient's medical care. Please read the chart carefully and recognize, using context, where these substitutions have occurred. Plan discussed with: Patient, Son Date of Service: Jan 22, 2024 Billing Provider: ARA ZAPATA Cardiology Common Codes: [id number] INP/OBS CARE (High), [id number] CARE 30-74 MIN ARA ZAPATA Jan 22, 2024 14:13
[2024-01-22 17:00] VITALS: BP 156/75; PULSE 65; RESP 20; TEMP 98; O2SAT 93
[2024-01-22 21:00] VITALS: BP 124/80; PULSE 58; RESP 18; TEMP 97.7; O2SAT 91
[2024-01-23] VITALS (7 sets, daily range): BP systolic 132–150; BP diastolic 72–99; PULSE 54–91; RESP 16–18; TEMP 97.6–98.3; O2SAT 92–95
--- NOTE | 2024-01-23 12:33 | DVHPN2 ---
Reviewed: Care Plan, H&P, Labs, Medications, Previous Orders, Radiology Changes from previous H/P or p: No Changes Eyes: No Pain, No Vision change, No Conjunctivae inflammation, No Eyelid inflammation, No Other, No Redness ENT: No Ear pain, No Ear discharge, No Nose pain, No Nose discharge, No Nose congestion, No Mouth pain, No Mouth swelling, No Throat pain, No Throat swelling, No Other Cardiovascular: No Chest Pain, No Palpitations, No Orthopnea, No Paroxysmal Noc. Dyspnea, No Edema, No Lt Headedness, No Other Respiratory: No Cough, No Dry, No Shortness of breath, No SOB with excertion, No Wheezing, No Hemoptysis, No Pleuritic Pain, No Sputum, No Other Gastrointestinal: No Nausea, No Vomiting, No Abdominal Pain, No Diarrhea, No Constipation, No Melena, No Hematochezia, No Other Genitourinary: No Dysuria, No Frequency, No Incontinence, No Hematuria, No Retention, No Other Musculoskeletal: No other, No neck pain, No shoulder pain, No arm pain; back pain; No hand pain, No leg pain, No foot pain Skin: No Rash, No Lesions, No Jaundice, No Bruising, No Other Objective Vitals Vital Signs Date Time Temp Pulse Resp B/P (MAP) Pulse Ox O2 Delivery O2 Flow Rate FiO2 01/23/24 09:00 97.6 54 18 144/80 (101) 92 97.6 01/22/24 20:00 Room Air* 0 21 Intake/Output Intake and Output 01/23/24 07:00 Intake Total 1390 ml Output Total 900 ml Balance 490 ml Intake Oral 1390 ml Output Urine Total 900 ml Medications Current Medications Medications Dose Ordered Sig/Irma Route Start Time Stop Time Status Last Admin Dose Admin Docusate Sodium 100 mg BIDPRN PRN PO 01/20/24 18:45 Acetaminophen 650 mg Q6HP PRN PO 01/20/24 18:45 Acetaminophen/ Hydrocodone Bitart 1 tab Q4HP PRN PO 01/20/24 18:45 01/23/24 10:38 1 TAB Ondansetron HCl 4 mg Q4HP PRN IV 01/20/24 18:45 Morphine Sulfate 2 mg Q4HPRN PRN IV 01/20/24 18:45 Hydralazine HCl 10 mg Q6HP PRN IV 01/21/24 18:00 01/22/24 00:30 10 MG Patient Own Medication 5 mg DAILY PO 01/22/24 10:00 Laboratory Results Laboratory Tests 01/21/24 08:57 Urinalysis Test 01/20/24 13:54 Urine Color Yellow (Yellow) Urine Clarity Clear (Clear) Urine pH 6.0 (5.0-9.0) Urine Specific [place] 1.028 (1.001-1.035) Urine Protein Negative (Negative) Urine Ketones Negative (Negative) Urine Blood Negative /uL (Negative) Urine Nitrite Negative (Negative) Urine Bilirubin Negative (Negative) Urine Urobilinogen Normal mg/dL (Negative) Urine Leukocyte Esterase Negative /uL (Negative) Urine RBC 2 /hpf (0 - 3) Urine WBC None seen /hpf (0 - 3) Urine Squamous Epithelial Cells Few /hpf (<5) Urine Bacteria None seen /hpf (None Seen) Urine Glucose Normal mg/dL (Normal) Labs and/or images reviewed: Labs reviewed by me, Image(s) reviewed by me Assessment/Plan Assessment/Plan Severe low back pain with DJD L1-L5 and spondylolisthesis L4 and L5, we will order MRI L-spine, spine surgery consult for placed Hypertension: Bystolic 5 mg p.o. daily History of pacemaker History of Bilateral laminectomy L4 and L5 six years ago Patient is on Eliquis ? 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 Campuzano Plan discussed with: Patient Date of Service: Jan 23, 2024 Billing Provider: ADA MARIA MD Common Visit Codes: [id number] INP/OBS CARE(HIGH) ADA MARIA MD Jan 23, 2024 12:33
--- NOTE | 2024-01-23 16:11 | DVH ---
MRI LUMBAR SPINE CLINICAL HISTORY: LBP TECHNIQUE: Multi planar, multi sequence MR images of the lumbar spine without intravenous contrast. Comparison: CT LS SPINE WO CONTRAST on DOS: 01/20/24 FINDINGS: The conus terminates at the L1 level and demonstrates normal caliber and signal. The vertebral bodies demonstrate normal height and marrow signal. Paraspinal soft tissues appear within normal limits. There are postsurgical changes in the lower lumbar spine with decompressive laminectomies at the L4 a nd L5 levels. There is mild dextroconvex curvature of the lumbar spine.There is exaggerated lumbar lo rdosis. There is multilevel disc desiccation with disc space narrowing. At L1-L2 there is disc bulge and mild facet arthropathy. There is indentation of the ventral thecal s ac without canal or significant foraminal stenosis. At L2-L3 there is slight grade 1 retrolisthesis. There is disc bulge eccentric to the left and bilate ral facet arthropathy. There is no central canal stenosis. There is narrowing of the left lateral rec ess. There is mild left foraminal stenosis. At L3-L4 there is grade 1 retrolisthesis of L3 on L4. There is advanced bilateral facet arthropathy. There is no significant central canal stenosis. There is narrowing of the lateral recesses. There is moderate to severe bilateral neural foraminal stenosis. At L4-L5 there are posterior decompressive laminectomies. There is advanced bilateral facet arthropa thy with grade 1 anterolisthesis of L4 on L5. There is posterior disc bulge without canal stenosis. T here is moderate right and moderate to severe left foraminal stenosis. At L5-S1 there are posterior decompressive laminectomies. There is advanced bilateral facet arthropat hy with slight grade 1 anterolisthesis of L5 on S1. There is posterior disc bulge without spinal eveline l stenosis. There is moderate left and moderate to severe right foraminal stenosis. IMPRESSION: 1. There are postsurgical changes in the lower lumbar spine with decompressive laminectomies at the L 4-L5 and L5-S1 levels. 2. There are multilevel degenerative changes in the lumbar spine as described by levels above. There is no significant spinal canal stenosis. 3. There is significant foraminal stenosis at multiple levels as noted above. HS:Y
--- NOTE | 2024-01-23 18:43 | DVHINCON2 ---
Consultation - Spinal Surgery Date Seen: Jan 23, 2024 History of Present Illness History of Present Illness Left side pain below the old lumbar spine surgery radiating down into the lleft thigh without radiating down to the feet no bowel or bladder incontinence no balance trouble no loss of control of bowel or bladder Allergies and medications Allergies: Coded Allergies: NO KNOWN ALLERGIES (Unverified , 01/20/24) Home Meds Reported Medications Nebivolol HCl (Nebivolol Hydrochloride) 2.5 Mg Tab, 1 TAB PO DAILY 01/21/24 Apixaban Base (ELIQUIS) 5 Mg Tab, 5 MG PO BID, TAB 01/21/24 Discontinued Reported Medications Nebivolol Hcl (Bystolic) 5 Mg Tab, 1 TAB PO DAILY, #30 TAB 5 Refills 01/21/24 Review of systems Review of Systems: HEENT:Normal, CVS:Normal, :Normal, MSK:Normal, NEURO:Normal Examination Vital signs Vital Signs Date Time Temp Pulse Resp B/P (MAP) Pulse Ox O2 Delivery O2 Flow Rate FiO2 01/23/24 17:00 97.9 88 18 149/99 (116) 93 97.9 01/23/24 08:10 Room Air* 0 21 Laboratory Labs Test 01/21/24 08:57 01/20/24 14:09 01/20/24 13:54 Range/Units White Blood Count 6.6 4.4-10.8 10^3/uL Red Blood Count 5.14 4.5-5.90 10^6/uL Hemoglobin 15.0 13.5-17.5 g/dL Hematocrit 44.2 41.0-53.0 % Mean Corpuscular Volume 85.9 80.0-100.0 fL Mean Corpuscular Hemoglobin 29.1 28.0-32.0 pg Mean Corpuscular Hemoglobin Concent 33.9 32.0-36.0 g/dL Red Cell Distribution Width 14.6 H 11.8-14.3 % Platelet Count 268 140-450 10^3/uL Mean Platelet Volume 8.5 6.9-10.8 fL Neutrophils (%) (Auto) 49.0 37.0-80.0 % Lymphocytes (%) (Auto) 39.0 10.0-50.0 % Monocytes (%) (Auto) 10.5 0.0-12.0 % Eosinophils (%) (Auto) 0.8 0.0-7.0 % Basophils (%) (Auto) 0.7 0.0-2.0 % Neutrophils # (Auto) 3.2 1.6-8.6 10 ^3/uL Lymphocytes # (Auto) 2.6 0.4-5.4 10 ^3/uL Monocytes # (Auto) 0.7 0-1.3 10 ^3/uL Eosinophils # (Auto) 0.1 0-0.8 10 ^3/uL Basophils # (Auto) 0 0-0.2 10 ^3/uL Nucleated Red Blood Cells 0.1 % Sodium Level 139 136-145 mmol/L Potassium Level 3.8 3.5-5.1 mmol/L Chloride Level 105 98-107 mmol/L Carbon Dioxide Level 26 20-31 mmol/L Anion Gap 8 5-15 Blood Urea Nitrogen 16 # 9-23 mg/dL Creatinine 1.11 0.700-1.30 mg/dL Glomerular Filtration Rate Calc 63 >90 mL/min BUN/Creatinine Ratio 14.4 10.0-20.0 Serum Glucose 128 H 74-106 mg/dL Calcium Level 10.0 8.7-10.4 mg/dL Troponin I High Sensitivity 4 </=54 ng/L Urine Color Yellow Yellow Urine Clarity Clear Clear Urine pH 6.0 5.0-9.0 Urine Specific [place] 1.028 1.001-1.035 Urine Protein Negative Negative Urine Ketones Negative Negative Urine Blood Negative Negative /uL Urine Nitrite Negative Negative Urine Bilirubin Negative Negative Urine Urobilinogen Normal Negative mg/dL Urine Leukocyte Esterase Negative Negative /uL Urine RBC 2 0 - 3 /hpf Urine WBC None seen 0 - 3 /hpf Urine Squamous Epithelial Cells Few <5 /hpf Urine Bacteria None seen None Seen /hpf Urine Glucose Normal Normal mg/dL Examination: GENERAL:Normal, HEENT:Normal, NECK:Normal, LUNGS:Normal, CVS:Normal, ABDOMEN:Normal, MSK:Abnormal, NEURO:Normal, :Normal Problem List/Assessment/Plan Problems: (1) Lumbar vertebral fracture Assessment and Plan MRi lumbar spine reveals a well decompressed spinal canal This diagnosis is 1. Sacroilitis: this is conservative case no surgery needed aggressive p.t. once he tolerates p.t., d/c home Plan discussed with Plan discussed with: Patient TAIWO BASURTO MD Jan 23, 2024 18:43
--- NOTE | 2024-01-23 18:48 | DVHPN2 ---
Progress Note Date Seen: Jan 23, 2024 Medical Necessity Reason Pt with a Central, PICC or Fol: No Subjective Patient reports: Feels better Other Systems: seen by spine surgeon Objective vital signs Vital Sign Date Time Temp Pulse Resp B/P (MAP) Pulse Ox O2 Delivery O2 Flow Rate FiO2 01/23/24 17:00 97.9 88 18 149/99 (116) 93 97.9 01/23/24 08:10 Room Air* 0 21 Total Intake and Output 01/22/24 01/22/24 01/23/24 15:00 23:00 07:00 Intake Total 240 ml 600 ml 550 ml Output Total 900 ml Balance 240 ml -300 ml 550 ml medications Current Medications Medications Dose Ordered Sig/Irma Route Start Time Stop Time Status Last Admin Dose Admin Docusate Sodium 100 mg BIDPRN PRN PO 01/20/24 18:45 Acetaminophen 650 mg Q6HP PRN PO 01/20/24 18:45 Acetaminophen/ Hydrocodone Bitart 1 tab Q4HP PRN PO 01/20/24 18:45 01/23/24 10:38 1 TAB Ondansetron HCl 4 mg Q4HP PRN IV 01/20/24 18:45 Morphine Sulfate 2 mg Q4HPRN PRN IV 01/20/24 18:45 Hydralazine HCl 10 mg Q6HP PRN IV 01/21/24 18:00 01/22/24 00:30 10 MG Patient Own Medication 5 mg DAILY PO 01/22/24 10:00 Examination: GENERAL:Abnormal, HEENT:Abnormal, LUNGS:Abnormal, CVS:Abnormal, ABDOMEN:Abnormal laboratory and microbiology Laboratory Tests 01/21/24 08:57 Test 01/21/24 08:57 Range/Units Serum Glucose 128 H 74-106 mg/dL Problem List/Assessment/Plan Problem List/Assessment/Plan pAF hx of PPM back pain no surgical indications per family pacer checked fu dr stuart after dc Plan discussed with: Patient Date of Service: Jan 23, 2024 Billing Provider: ELIANA LIRIANO MD Common Visit Codes: NOT BILLABLE ELIANA LIRIANO MD Jan 23, 2024 18:48
[2024-01-24 01:00] VITALS: BP 140/90; PULSE 78; RESP 18; TEMP 98.2; O2SAT 96
[2024-01-24 05:00] VITALS: BP 146/87; PULSE 85; RESP 17; TEMP 97.9; O2SAT 94
[2024-01-24 07:30] VITALS: PULSE 89; RESP 16; O2SAT 97
[2024-01-24 09:04] VITALS: BP 150/106; PULSE 89; RESP 16; TEMP 98.1; O2SAT 97
[2024-01-24 09:05] VITALS: BP 150/106; PULSE 89; RESP 16; TEMP 98.1; O2SAT 97
[2024-01-24] MEDS ORDERED: PRED20TA2 PO (10:30)
[2024-01-24] MEDS ORDERED: HYDR-4902 PO (10:30)
--- NOTE | 2024-01-24 10:36 | DVHPN2 ---
Reviewed: Care Plan, H&P, Labs, Medications, Previous Orders, Radiology Changes from previous H/P or p: No Changes Eyes: No Pain, No Vision change, No Conjunctivae inflammation, No Eyelid inflammation, No Other, No Redness ENT: No Ear pain, No Ear discharge, No Nose pain, No Nose discharge, No Nose congestion, No Mouth pain, No Mouth swelling, No Throat pain, No Throat swelling, No Other Cardiovascular: No Chest Pain, No Palpitations, No Orthopnea, No Paroxysmal Noc. Dyspnea, No Edema, No Lt Headedness, No Other Respiratory: No Cough, No Dry, No Shortness of breath, No SOB with excertion, No Wheezing, No Hemoptysis, No Pleuritic Pain, No Sputum, No Other Gastrointestinal: No Nausea, No Vomiting, No Abdominal Pain, No Diarrhea, No Constipation, No Melena, No Hematochezia, No Other Genitourinary: No Dysuria, No Frequency, No Incontinence, No Hematuria, No Retention, No Other Musculoskeletal: No other, No neck pain, No shoulder pain, No arm pain; back pain; No hand pain, No leg pain, No foot pain Skin: No Rash, No Lesions, No Jaundice, No Bruising, No Other Objective Vitals Vital Signs Date Time Temp Pulse Resp B/P (MAP) Pulse Ox O2 Delivery O2 Flow Rate FiO2 01/24/24 09:05 98.1 89 16 150/106 (121) 97 98.1 01/23/24 20:00 Room Air* 0 21 Intake/Output Intake and Output 01/24/24 07:00 Intake Total 750 ml Output Total 100 ml Balance 650 ml Intake Oral 750 ml Output Urine Total 100 ml # Voids 4 Medications Current Medications Medications Dose Ordered Sig/Irma Route Start Time Stop Time Status Last Admin Dose Admin Docusate Sodium 100 mg BIDPRN PRN PO 01/20/24 18:45 Acetaminophen 650 mg Q6HP PRN PO 01/20/24 18:45 Acetaminophen/ Hydrocodone Bitart 1 tab Q4HP PRN PO 01/20/24 18:45 01/23/24 10:38 1 TAB Ondansetron HCl 4 mg Q4HP PRN IV 01/20/24 18:45 Morphine Sulfate 2 mg Q4HPRN PRN IV 01/20/24 18:45 Hydralazine HCl 10 mg Q6HP PRN IV 01/21/24 18:00 01/22/24 00:30 10 MG Patient Own Medication 5 mg DAILY PO 01/22/24 10:00 Laboratory Results Laboratory Tests 01/21/24 08:57 Urinalysis Test 01/20/24 13:54 Urine Color Yellow (Yellow) Urine Clarity Clear (Clear) Urine pH 6.0 (5.0-9.0) Urine Specific [place] 1.028 (1.001-1.035) Urine Protein Negative (Negative) Urine Ketones Negative (Negative) Urine Blood Negative /uL (Negative) Urine Nitrite Negative (Negative) Urine Bilirubin Negative (Negative) Urine Urobilinogen Normal mg/dL (Negative) Urine Leukocyte Esterase Negative /uL (Negative) Urine RBC 2 /hpf (0 - 3) Urine WBC None seen /hpf (0 - 3) Urine Squamous Epithelial Cells Few /hpf (<5) Urine Bacteria None seen /hpf (None Seen) Urine Glucose Normal mg/dL (Normal) Labs and/or images reviewed: Labs reviewed by me, Image(s) reviewed by me Assessment/Plan Assessment/Plan Severe low back pain with DJD L1-L5 and spondylolisthesis L4 and L5, we will order MRI L-spine, spine surgery consult for placed Hypertension: Bystolic 5 mg p.o. daily History of pacemaker History of Bilateral laminectomy L4 and L5 six years ago Patient is on Eliquis ? etiology , we will hold for now as patient may need surgery Patient's son Sang Rogers [phone] and Niece Candis [phone] at bedside Time spent [address] Valenzuela MRI LS spine shows chronic DJD changes well decompressed spinal canal and possible sacroiliitis, Dr. Campuzano advised Solu-Medrol and discharged home on physical therapy and pain meds Discussed the plan to discharge patient home on home health with the patient's niece Candis and the patient Plan discussed with: Patient My Orders Orders - ADA MARIA MD Procedure Category Date Status Time Lumbar Spine Wo MRI 01/23/24 Resulted Contrast Methylprednisolone PHA 01/24/24 In Process Sod Succ (Solu Medrol 10:30 * Nurses Director CONS 01/24/24 Transmitted Consult Date of Service: Jan 24, 2024 Billing Provider: ADA MARIA MD Common Visit Codes: [id number] INP/OBS CARE(HIGH) ADA MARIA MD Jan 24, 2024 10:35
--- NOTE | 2024-01-24 10:43 | DVHDS2 ---
Discharge Summary Date of Admission Jan 20, 2024 at 18:42 Date of Discharge: Jan 24, 2024 Admitting Diagnosis Exacerbation of chronic low back pain Wounds: None Labs/Diagnostic Data: Laboratory Results Test 01/21/24 08:57 01/20/24 14:09 01/20/24 13:54 White Blood Count 6.6 10^3/uL (4.4-10.8) Red Blood Count 5.14 10^6/uL (4.5-5.90) Hemoglobin 15.0 g/dL (13.5-17.5) Hematocrit 44.2 % (41.0-53.0) Mean Corpuscular Volume 85.9 fL (80.0-100.0) Mean Corpuscular Hemoglobin 29.1 pg (28.0-32.0) Mean Corpuscular Hemoglobin Concent 33.9 g/dL (32.0-36.0) Red Cell Distribution Width 14.6 % (11.8-14.3) Platelet Count 268 10^3/uL (140-450) Mean Platelet Volume 8.5 fL (6.9-10.8) Neutrophils (%) (Auto) 49.0 % (37.0-80.0) Lymphocytes (%) (Auto) 39.0 % (10.0-50.0) Monocytes (%) (Auto) 10.5 % (0.0-12.0) Eosinophils (%) (Auto) 0.8 % (0.0-7.0) Basophils (%) (Auto) 0.7 % (0.0-2.0) Neutrophils # (Auto) 3.2 10 ^3/uL (1.6-8.6) Lymphocytes # (Auto) 2.6 10 ^3/uL (0.4-5.4) Monocytes # (Auto) 0.7 10 ^3/uL (0-1.3) Eosinophils # (Auto) 0.1 10 ^3/uL (0-0.8) Basophils # (Auto) 0 10 ^3/uL (0-0.2) Nucleated Red Blood Cells 0.1 % Sodium Level 139 mmol/L (136-145) Potassium Level 3.8 mmol/L (3.5-5.1) Chloride Level 105 mmol/L (98-107) Carbon Dioxide Level 26 mmol/L (20-31) Anion Gap 8 (5-15) Blood Urea Nitrogen 16 mg/dL (9-23) Creatinine 1.11 mg/dL (0.700-1.30) Glomerular Filtration Rate Calc 63 mL/min (>90) BUN/Creatinine Ratio 14.4 (10.0-20.0) Serum Glucose 128 mg/dL (74-106) Calcium Level 10.0 mg/dL (8.7-10.4) Troponin I High Sensitivity 4 ng/L (</=54) Urine Color Yellow (Yellow) Urine Clarity Clear (Clear) Urine pH 6.0 (5.0-9.0) Urine Specific [place] 1.028 (1.001-1.035) Urine Protein Negative (Negative) Urine Ketones Negative (Negative) Urine Blood Negative /uL (Negative) Urine Nitrite Negative (Negative) Urine Bilirubin Negative (Negative) Urine Urobilinogen Normal mg/dL (Negative) Urine Leukocyte Esterase Negative /uL (Negative) Urine RBC 2 /hpf (0 - 3) Urine WBC None seen /hpf (0 - 3) Urine Squamous Epithelial Cells Few /hpf (<5) Urine Bacteria None seen /hpf (None Seen) Urine Glucose Normal mg/dL (Normal) Other Laboratory Tests 01/21/24 08:57 Brief Hx & Hospital Course: 88-year-old male with a history of chronic low back pain previous history of laminectomy brought in and admitted for severe low back pain radiating down the legs. Patient has a history of hypertension pacemaker and he is also on Eliquis. Patient was admitted treated with the pain medications and physical therapy. MRI LS spine showed well decompensated spinal canal and DJD changes. seen by spine surgeon Dr. Campuzano. Given dose of Solu-Medrol and patient being discharged on prednisone and Stella. Recommended [facility] for pain management and rehab but the patient's niece Candis syncope discharged home on home health Consults/Reason for consult Spine Surgeon Dr. Campuzano Operations or Procedures CT LS spine MRI LS spine Condition at Discharge: Fair Final Diagnosis/Problems List Severe low back pain with DJD L1-L5 and spondylolisthesis L4 and L5, we will order MRI L-spine, spine surgery consult for placed Hypertension: Bystolic 5 mg p.o. daily History of pacemaker History of Bilateral laminectomy L4 and L5 six years ago Patient is on Eliquis ? etiology , we will hold for now as patient may need surgery Patient's son Sang Rogers [phone] and Nicalin Candis [phone] at bedside Time spent [address] Valenzuela MRI LS spine shows chronic DJD changes well decompressed spinal canal and possible sacroiliitis, Dr. Campuzano advised Solu-Medrol and discharged home on physical therapy and pain meds Discussed the plan to discharge patient home on home health with the patient's niece Candis and the patient Discharge Disposition: Home with Health Services Discharge Instruct/Medications Diet: Cardiac 2g Na,low cholest Activity: Light activity Follow Up/Referral: Resume all previous home medications Follow up with your primary Dr Medications: Prednisone Stella Transmitted to the pharmacy Discharge Statement: "Patient was advised to return to the ER or call 911 if any headaches, dizziness, shortness of breath, chest pain, abdominal pain, bleeding, fevers, or worsening of medical condition. Patient was counseled about treatment plan, medications, possible side effects, patientverbalized understanding. All questions were answered to the best of my ability. This discharge took greater then 30 minutes in planning, reviewing documentation, counseling the patient, and discussing with other team members." ASSESSMENT ASSESSMENT Hospital Course Marginal improvement Assessment Severe low back pain with DJD L1-L5 and spondylolisthesis L4 and L5, we will order MRI L-spine, spine surgery consult for placed Hypertension: Bystolic 5 mg p.o. daily History of pacemaker History of Bilateral laminectomy L4 and L5 six years ago Patient is on Eliquis ? etiology , we will hold for now as patient may need surgery Patient's son Sang Rogers [phone] and Nicole Candis [phone] at bedside Time spent [address] Valenzuela MRI LS spine shows chronic DJD changes well decompressed spinal canal and possible sacroiliitis, Dr. Campuzano advised Solu-Medrol and discharged home on physical therapy and pain meds Discussed the plan to discharge patient home on home health with the patient's niece Candis and the patient Date of Service: Jan 24, 2024 Billing Provider: ADA MARIA MD Common Visit Codes: 17704-NON/OBS DISCH DAY >30min ADA MARIA MD Jan 24, 2024 10:43
[2024-01-24] MEDS: methylPREDNISolone SOD SUCC 125 MG/2 ML VL IV ONE (10:51)
[2024-01-24 10:58] VITALS: BP 145/97; PULSE 85; RESP 17; TEMP 98.5; O2SAT 98
--- NOTE | 2024-01-24 12:22 | DVHPN2 ---
Progress Note Date Seen: Jan 24, 2024 Medical Necessity Reason Pt with a Central, PICC or Fol: No Subjective Patient reports: Feels better Objective vital signs Vital Sign Date Time Temp Pulse Resp B/P (MAP) Pulse Ox O2 Delivery O2 Flow Rate FiO2 01/24/24 10:58 98.5 85 17 98 01/24/24 09:05 150/106 (121) 01/24/24 07:30 Room Air* 0 21 Total Intake and Output 01/23/24 01/23/24 01/24/24 15:00 23:00 07:00 Intake Total 500 ml 250 ml Output Total 100 ml Balance 500 ml 150 ml medications Current Medications Medications Dose Ordered Sig/Irma Route Start Time Stop Time Status Last Admin Dose Admin Docusate Sodium 100 mg BIDPRN PRN PO 01/20/24 18:45 Acetaminophen 650 mg Q6HP PRN PO 01/20/24 18:45 Acetaminophen/ Hydrocodone Bitart 1 tab Q4HP PRN PO 01/20/24 18:45 01/23/24 10:38 1 TAB Ondansetron HCl 4 mg Q4HP PRN IV 01/20/24 18:45 Morphine Sulfate 2 mg Q4HPRN PRN IV 01/20/24 18:45 Hydralazine HCl 10 mg Q6HP PRN IV 01/21/24 18:00 01/22/24 00:30 10 MG Patient Own Medication 5 mg DAILY PO 01/22/24 10:00 Examination: GENERAL:Normal, HEENT:Normal, NECK:Normal, LUNGS:Abnormal, CVS:Abnormal, ABDOMEN:Abnormal laboratory and microbiology Laboratory Tests 01/21/24 08:57 Test 01/21/24 08:57 Range/Units Serum Glucose 128 H 74-106 mg/dL Problem List/Assessment/Plan Problem List/Assessment/Plan pAF hx of PPM back pain no surgical indications per family pacer checked fu dr stuart after dc Plan discussed with: Patient Date of Service: Jan 24, 2024 Billing Provider: ELIANA LIRIANO MD Common Visit Codes: NOT BILLABLE ELIANA LIRIANO MD Jan 24, 2024 12:22
== END 2024-01-24 13:30 | disposition home health service (06) | DRG 552 ==
LOC: EDBD 13:27 → ER 13:27 → OVERFLOW 18:42 → WEST WING 18:49
PROVIDERS: ADMIT Hospitalist; ATTEND Family Medicine
DX: M43.16 Spondylolisthesis, lumbar region (principal); S32.009A Unspecified fracture of unspecified lumbar vertebra, initial encounter for closed fracture; I10 Essential (primary) hypertension; I48.0 Paroxysmal atrial fibrillation; G89.29 Other chronic pain; I49.5 Sick sinus syndrome; M51.369 Other intervertebral disc degeneration, lumbar region without mention of lumbar back pain or lower extremity pain; Z79.01 Long term (current) use of anticoagulants; Z85.46 Personal history of malignant neoplasm of prostate; Z95.0 Presence of cardiac pacemaker; Z79.899 Other long term (current) drug therapy
CPT/HCPCS: 36415; 72131; 72148; 80048; 81001; 84484; 85025; 97110; 97116; 97163; 97530; 99291; G0378